=== PATIENT | male | born 1950 | race Caucasian/White ===

== ENCOUNTER 2016-07-23 20:00 | Emergency (ER) | payer MEDICARE, OTHER ==
[2016-07-23] MEDS ORDERED: DIAZEPAM 5 MG TABLET PO ONE (20:59)
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
[2016-07-23 22:47] LABS: APPEARANCE,URINE CLEAR; BILIRUBIN,URINE NEGATIVE (NEGATIVE); GLUCOSE, URINE NEGATIVE (NEGATIVE); KETONES,URINE NEGATIVE (NEGATIVE); LEUKOCYTE ESTERASE,URINE NEGATIVE (NEGATIVE); NITRITE,URINE NEGATIVE (NEGATIVE); PROTEIN,URINE NEGATIVE (NEGATIVE); URINE SPECIFIC GRAVITY 1.006; UROBILINOGEN,URINE NEGATIVE mg/dL (<2.0)
[2016-07-23 22:52] LABS: ALANINE AMINOTRANSFERASE 58 U/L (21-72); ALBUMIN 4.1 g/dL (3.5-5.0); ALKALINE PHOSPHATASE 68 U/L (38-126); ANION GAP 10 (5-19); ASPARTATE AMINO TRANSFERASE 57 U/L (17-59); BILIRUBIN,DIRECT 0.3 mg/dL (0.0-0.4); BILIRUBIN,TOTAL 0.7 mg/dL (0.2-1.3); BLOOD UREA NITROGEN 16 mg/dL (7-20); CALCIUM 9.3 mg/dL (8.4-10.2); CARBON DIOXIDE 27 mmol/L (22-30); CHLORIDE 105 mmol/L (98-107); CREATININE RESULT 0.65 mg/dL (0.52-1.25); GLUCOSE 96 mg/dL (75-110); POTASSIUM 4.5 mmol/L (3.6-5.0); SODIUM 142.1 mmol/L (137-145); TOTAL PROTEIN 6.7 g/dL (6.3-8.2)
[2016-07-23 22:57] LABS: ALCOHOL < 10 mg/dL (NONE DETECTED)
[2016-07-23 23:02] LABS: URINE BARBITURATES SCREEN NEGATIVE; URINE METHADONE SCREEN NEGATIVE; URINE OPIATES LOW NEGATIVE; URINE PHENCYCLIDINE SCREEN NEGATIVE
[2016-07-23 23:46] LABS: ABSOLUTE EOSINOPHILS # (AUTO) 0.1 10^3/uL (0.0-0.6); ABSOLUTE MONOCYTES (AUTO) 0.7 10^3/uL (0.1-1.4); ABSOLUTE NEUT (AUTO) 4.6 10^3/uL (1.7-8.2); BASOPHILS % (AUTO) 0.5 % (0-2); HEMATOCRIT 40.3 % (37.9-51.0); HEMOGLOBIN 13.9 g/dL (13.5-17.0); HGB HCT DIFFERENCE 1.4; LYMPHOCYTES % (AUTO) 15.7 % (13-45); MEAN CORPUSCULAR HEMOGLOBIN 29.1 pg (27.0-33.4); MEAN CORPUSCULAR HGB CONC 34.5 g/dL (32.0-36.0); MEAN CORPUSCULAR VOLUME 84 fl (80-97); MONOCYTES % (AUTO) 10.2 % (3-13); RED BLOOD COUNT 4.77 10^6/uL (4.35-5.55); RED CELL DISTRIBUTION WIDTH 13.3 % (11.5-14.0); SEGMENTED NEUTROPHILS % (AUTO) 71.6 % (42-78); WHITE BLOOD COUNT 6.4 10^3/uL (4.0-10.5)
[2016-07-24] MEDS ORDERED: FLUOXETINE HCL 20 MG CAPSULE PO ONE (01:39)
--- NOTE | 2016-07-24 08:37 | EKG REPORT ---
SEVERITY:- NORMAL ECG - SINUS RHYTHM : Confirmed by: Carrillo Townsend 24-Jul-2016 08:36:35
--- NOTE | 2016-07-24 09:32 | ER Document Report ---
Doctor's Note Notes: 07/24/16 09:32 Lab work vital signs have been reviewed. At this time patient is currently stable with no overnight events requiring no intervention at this time. Patient stable for transfer or other disposition
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
[2016-07-24] MEDS ORDERED: LEVOTHYROXINE SODIUM 0.075 MG TABLET PO SCH (16:00)
[2016-07-24] MEDS ORDERED: LEVOTHYROXINE SODIUM 0.075 MG TABLET PO ONE (17:00)
[2016-07-24] MEDS: RISPERIDONE 0.5 MG TAB.RAPDIS PO SCH (18:56)
[2016-07-24] MEDS ORDERED: DIAZEPAM 5 MG TABLET PO ONE (22:13)
[2016-07-25] MEDS: RISPERIDONE 0.5 MG TAB.RAPDIS PO SCH ×2 (09:35→18:32)
[2016-07-25] MEDS: LEVOTHYROXINE SODIUM 0.075 MG TABLET PO SCH (09:35)
[2016-07-25] MEDS: FLUOXETINE HCL 20 MG CAPSULE PO SCH (09:35)
--- NOTE | 2016-07-25 16:45 | PSYCHOLOGICAL NOTE ---
Psych Note - Psych Note Psych Note: Conducted check-in with patient his 66-year-old male under IVC due to suicidal ideations. Patient continues to endorse that he wants to ; however, is perseverative on checking the mail at the 4 different locations, paying bills, sorting through junk mail, and not losing any important piece's. Current plan of care includes seeking inpatient hospitalization. At this time we are told there are no beds from various facilities. Patient was started on medications while here in the department and cleared to continue with medication administration to attempts at assisting patient in managing his mood and depressive symptoms. Patient reports she has no family or friends to call upon for support. This reportedly also includes neighbors. Patient is A&O. Mood is anxious and depressed with congruent affect. Patient endorses suicidal ideations with means, but denies the emotional ability to shoot himself. Patient denies homicidal ideations, intent, plan, or means. Patient denies A/V h; delusions not noted. Thought processes were perseverative. Conversational speech was low for rate, tone, and prosody. Intellectual abilities were estimated above average. Attention and focus were poor. Insight, judgment, and impulse control were poor. Unspecified Depressive Disorder Patient is recommended to remain under involuntary commitment and seek 24-hour inpatient psychiatric care. Patient presents with suicidal ideations, with means. Patient does acknowledge that he is "too chicken" to pull the trigger; however, patient does state he wants to . I consulted with Dr. Dwyer in regards to the care and management of this patient. ED Rosalind is in agreement with disposition and recommendations
--- NOTE | 2016-07-25 19:34 | ER Document Report ---
Doctor's Note Notes: 07/25/16 19:32 Rounds: Rounds were being made in the evening at approximately 7:30 PM. Chart reviewed and patient sleeping soundly with a blanket pulled over his face so I did not awaken him. Mental health personnel did examine the patient and we discussed plan this afternoon. Patient's labs were all essentially normal on admission. His vital signs all been normal with one exception of a blood pressure of 98/66. Patient appears to be medically stable for transfer or discharge. Mental health has recommended the patient be kept overnight for further evaluation in the morning. Brisa Renae M.D.
[2016-07-26] MEDS: RISPERIDONE 0.5 MG TAB.RAPDIS PO SCH (09:44)
[2016-07-26] MEDS: FLUOXETINE HCL 20 MG CAPSULE PO SCH (09:44)
[2016-07-26] MEDS: LEVOTHYROXINE SODIUM 0.075 MG TABLET PO SCH (09:44)
[2016-07-26 15:15] VITALS: BP 123/72
== END 2016-07-26 17:14 ==
LOC: ER 20:00
DX: R45.851 Suicidal ideations (principal); E03.9 Hypothyroidism, unspecified; F32.9 Major depressive disorder, single episode, unspecified; Z79.899 Other long term (current) drug therapy
CPT/HCPCS: 93005; 36415; 80307 ×4; 84443; 85025; 80053; 81001; 93010; J3490 ×3

== ENCOUNTER → 2017-06-21 | Outpatient (CLI) | payer MEDICARE ==
[2017-06-21 11:52] LABS: ABSOLUTE BASOPHILS # (AUTO) 0.1 10^3/uL (0.0-0.2); ABSOLUTE EOSINOPHILS # (AUTO) 0.3 10^3/uL (0.0-0.6); ABSOLUTE MONOCYTES (AUTO) 0.6 10^3/uL (0.1-1.4); ABSOLUTE NEUT (AUTO) 4.1 10^3/uL (1.7-8.2); EOSINOPHILS % (AUTO) 4.7 % (0-6); HEMATOCRIT 43.4 % (37.9-51.0); HEMOGLOBIN 14.5 g/dL (13.5-17.0); LYMPHOCYTES % (AUTO) 16.9 % (13-45); MEAN CORPUSCULAR HEMOGLOBIN 28.6 pg (27.0-33.4); MEAN CORPUSCULAR HGB CONC 33.5 g/dL (32.0-36.0); MEAN CORPUSCULAR VOLUME 85 fl (80-97); MONOCYTES % (AUTO) 10.5 % (3-13); PLATELET COUNT 145 10^3/uL (150-450); RED BLOOD COUNT 5.08 10^6/uL (4.35-5.55); SEGMENTED NEUTROPHILS % (AUTO) 66.9 % (42-78); TOTAL CELLS COUNTED % (AUTO) 100 %; WHITE BLOOD COUNT 6.1 10^3/uL (4.0-10.5)
[2017-06-21 12:12] LABS: ALANINE AMINOTRANSFERASE 37 U/L (21-72); ALBUMIN 4.5 g/dL (3.5-5.0); ALKALINE PHOSPHATASE 74 U/L (38-126); ANION GAP 9 (5-19); ASPARTATE AMINO TRANSFERASE 35 U/L (17-59); BILIRUBIN,DIRECT 0.4 mg/dL (0.0-0.4); BILIRUBIN,TOTAL 0.4 mg/dL (0.2-1.3); BLOOD UREA NITROGEN 17 mg/dL (7-20); CALCIUM 9.5 mg/dL (8.4-10.2); CARBON DIOXIDE 29 mmol/L (22-30); CHLORIDE 106 mmol/L (98-107); GLUCOSE 97 mg/dL (75-110); POTASSIUM 4.8 mmol/L (3.6-5.0); SODIUM 143.9 mmol/L (137-145); TOTAL PROTEIN 7.3 g/dL (6.3-8.2)
[2017-06-21 12:57] LABS: CHOLESTEROL 226.74 mg/dL (0-200); TRIGLYCERIDES 88 mg/dL (<150)
[2017-06-21 13:07] LABS: DIRECT LDL 144 mg/dL (<100)
== END ==
LOC: LAB 11:15
PROVIDERS: ATTEND Internal Medicine
DX: E78.5 Hyperlipidemia, unspecified (principal); E03.9 Hypothyroidism, unspecified; R53.83 Other fatigue; R35.1 Nocturia; F31.9 Bipolar disorder, unspecified
CPT/HCPCS: 36415; 80053; 80061; 83036; 84153; 84443; 85025

== ENCOUNTER → 2018-01-08 | Outpatient (CLI) | payer MEDICARE ==
[2018-01-08 16:44] LABS: TRIGLYCERIDES 112 mg/dL (<150)
[2018-01-08 16:55] LABS: DIRECT LDL 104 mg/dL (<100)
== END ==
LOC: LAB 15:57
PROVIDERS: ATTEND Internal Medicine
DX: E78.5 Hyperlipidemia, unspecified (principal); E53.9 Vitamin B deficiency, unspecified; E03.9 Hypothyroidism, unspecified; E55.9 Vitamin D deficiency, unspecified
CPT/HCPCS: 36415; 80061; 82306; 82607; 84443

== ENCOUNTER → 2018-08-23 | Outpatient (CLI) | payer MEDICARE | LOC: OD 12:12 | PROVIDERS: ATTEND Internal Medicine | DX: E03.9 Hypothyroidism, unspecified (principal) | CPT/HCPCS: 36415; 84443 ==

== ENCOUNTER → 2019-05-02 | Outpatient (CLI) | payer MEDICARE ==
[2019-05-02 14:52] LABS: ALBUMIN 4.4 g/dL (3.5-5.0); ALKALINE PHOSPHATASE 60 U/L (38-126); ANION GAP 8 (5-19); ASPARTATE AMINO TRANSFERASE 45 U/L (17-59); BILIRUBIN,DIRECT 0.3 mg/dL (0.0-0.4); BILIRUBIN,TOTAL 0.6 mg/dL (0.2-1.3); BLOOD UREA NITROGEN 26 mg/dL (7-20); CALCIUM 9.6 mg/dL (8.4-10.2); CARBON DIOXIDE 29 mmol/L (22-30); CHLORIDE 102 mmol/L (98-107); CHOLESTEROL 258.23 mg/dL (0-200); GLUCOSE 96 mg/dL (75-110); POTASSIUM 4.5 mmol/L (3.6-5.0); TOTAL PROTEIN 7.4 g/dL (6.3-8.2); TRIGLYCERIDES 118 mg/dL (<150)
[2019-05-02 15:03] LABS: DIRECT LDL 177 mg/dL (<100)
[2019-05-02 16:15] LABS: ABSOLUTE EOSINOPHILS # (AUTO) 0.4 10^3/uL (0.0-0.6); ABSOLUTE LYMPHOCYTES (AUTO) 1.4 10^3/uL (0.5-4.7); ABSOLUTE MONOCYTES (AUTO) 1.1 10^3/uL (0.1-1.4); ABSOLUTE NEUT (AUTO) 6.7 10^3/uL (1.7-8.2); BASOPHILS % (AUTO) 0.5 % (0-2); HEMATOCRIT 42.4 % (37.9-51.0); HEMOGLOBIN 14.5 g/dL (13.5-17.0); LYMPHOCYTES % (AUTO) 14.9 % (13-45); MEAN CORPUSCULAR HEMOGLOBIN 29.2 pg (27.0-33.4); MEAN CORPUSCULAR HGB CONC 34.2 g/dL (32.0-36.0); MEAN CORPUSCULAR VOLUME 85 fl (80-97); MONOCYTES % (AUTO) 11.1 % (3-13); PLATELET COUNT 186 10^3/uL (150-450); RED BLOOD COUNT 4.96 10^6/uL (4.35-5.55); RED CELL DISTRIBUTION WIDTH 13.1 % (11.5-14.0); SEGMENTED NEUTROPHILS % (AUTO) 69.5 % (42-78); TOTAL CELLS COUNTED % (AUTO) 100 %; WHITE BLOOD COUNT 9.7 10^3/uL (4.0-10.5)
== END ==
LOC: LAB 14:01
PROVIDERS: ATTEND Internal Medicine
DX: E03.9 Hypothyroidism, unspecified (principal); E78.5 Hyperlipidemia, unspecified; R53.83 Other fatigue
CPT/HCPCS: 36415; 80053; 80061; 84443; 85025